=== PATIENT | born 1960 | race Caucasian/White ===

== ENCOUNTER → 2023-09-24 13:18 | Outpatient (BNVA) | payer MEDICARE, MEDICAID, SELFPAY | PROVIDERS: PCP Nurse Practitioner Family; Visit Provider Surgery | DX: Z12.11 Encounter for screening for malignant neoplasm of colon (principal) | CPT/HCPCS: 99024; 99204 ==

== ENCOUNTER 2023-10-29 07:14 | Day surgery (SDC) | payer MEDICARE, SELFPAY ==
[2023-10-29 07:32] VITALS: BP 137/79; PULSE 78; RESP 18; TEMP 36.2; O2SAT 96
[2023-10-29 07:34] VITALS: BMI 26.6
[2023-10-29] MEDS: sodium chloride 0.9% 1,000 ML 30 ML IV (07:39)
--- NOTE | 2023-10-29 07:40 | ANES.PREANE2 ---
Pre-Anesthetic Assessment Height/Weight: Height 1.8 m Weight 86.636 kg Temp Pulse Resp BP Pulse Ox O2 Del Method 97.2 F 78 18 137/79 96 Room Air 10/29/23 07:32 10/29/23 07:32 10/29/23 07:32 10/29/23 07:32 10/29/23 07:32 10/29/23 07:32 Operation Date: 10/29/23 08:30 Proposed Procedures p Colonoscopy(Not Applicable) - Juan Hathaway MD Last intake: Intake Last Liquid Date 10/28/23 Last Liquid Time 22:00 Last Solid Date 10/28/23 Social Tobacco Exam alert and oriented x 3 Airway Submandibular: within normal limits Mallampati: Class II History/ROS No significant history except as noted Metabolic Hyperlipidemia Anesthetic Plan ASA status: 2 Anesthesia: MAC Medications/Allergies Home Medications Medication Instructions Recorded Confirmed Last Taken Type alprazolam 1 mg tablet 1 mg PO TID 09/24/23 10/24/23 10/23/23 History atorvastatin 40 mg tablet 1 mg PO DAILY 09/24/23 10/24/23 10/23/23 History Allergies Allergy/AdvReac Type Severity Reaction Status Date / Time Opioids - Morphine Analogues Allergy ALGY-Rash Verified 10/29/23 07:41 pregabalin [From Lyrica] Allergy ALGY-Rash Verified 10/29/23 07:41 Current Medications Generic Name Dose Route Start Last Admin Trade Name Freq PRN Reason Stop Dose Admin Sodium Chloride 1,000 mls @ 30 mls/hr 10/29/23 07:15 10/29/23 07:39 Sodium Chloride 0.9% IV 30 mls/hr .Q24H TASHIA Administration PFSH Anesthesia Family History (Updated 09/24/23 @ 13:43 by ANDREW Shaw) Mother Chronic mental illness Father Diabetes Social History (Updated 09/24/23 @ 13:43 by ANDREW Shaw) Smoking and tobacco/nicotine status: current every day tobacco/nicotine user cigarettes Alcohol intake: never Data Anesthesia Cardiac Studies: No Data to Display
--- NOTE | 2023-10-29 07:41 | W.PM.OPSFHP ---
Same Day Surgery H&P Indication for Procedure/HPI DATE OF PROCEDURE: October 29, 2023 CHIEF COMPLAINT/INDICATIONFOR SURGICAL PROCEDURE: colon cancer screening PREOP DIAGNOSIS: colon cancer screening PLANNED PROCEDURE: Operation Date: 10/29/23 08:30 Proposed Procedures p Colonoscopy(Not Applicable) - Juan Hathaway MD Medications/Allergies* Home Medications Medication Instructions Recorded Confirmed Type alprazolam 1 mg tablet 1 mg PO TID 09/24/23 10/24/23 History atorvastatin 40 mg tablet 1 mg PO DAILY 09/24/23 10/24/23 History Allergies/Adverse Reactions Allergy/AdvReac Type Severity Reaction Status Date / Time Opioids - Morphine Analogues Allergy ALGY-Rash Verified 10/29/23 07:41 pregabalin [From Lyrica] Allergy ALGY-Rash Verified 10/29/23 07:41 Current Medications: Generic Name Dose Route Start Last Admin Trade Name Freq PRN Reason Stop Dose Admin Sodium Chloride 1,000 mls @ 30 mls/hr 10/29/23 07:15 10/29/23 07:39 Sodium Chloride 0.9% IV 30 mls/hr .Q24H TASHIA Administration Pertinent History/Comorbid Conditions* Family History (Updated 09/24/23 @ 13:43 by ANDREW Shaw) Chronic mental illness Mother Diabetes Father Social History Smoking and tobacco/nicotine status: current every day tobacco/nicotine user cigarettes Alcohol intake: never Pertinent Exam Findings alert, oriented x 3 and clear to auscultation bilaterally Recommendations Surgery/Procedure today Coding Level of Care Code Acute Code for Chg Fwd
[2023-10-29 09:10] VITALS: BP 113/77; PULSE 65; RESP 18; TEMP 36.3; O2SAT 95
--- NOTE | 2023-10-29 12:47 | ANE.PACU2 ---
Inpatient post-anesthesia follow up: Vital signs: Temperature 97.3 F Pulse Rate 65 Respiratory Rate 18 Blood Pressure 113/77 Pulse Oximetry 95 Oxygen Delivery Me thod Room Air Oxygen Flow Rate Fraction of Inspir ed Oxygen Hydration adequate: Yes Nausea and vomiting: No Pain level: 1 Mental status: Baseline
== END 2023-10-29 09:35 | disposition home or self-care (01) ==
PROVIDERS: PCP Nurse Practitioner Family; Visit Provider Surgery
PROC: 0DJD8ZZ Inspection of Lower Intestinal Tract, Via Natural or Artificial Opening Endoscopic (ICD-10-PCS; CPT 45378; principal; 2023-10-29 08:30)
DX: Z12.11 Encounter for screening for malignant neoplasm of colon (principal); K57.30 Diverticulosis of large intestine without perforation or abscess without bleeding; K51.40 Inflammatory polyps of colon without complications; K62.1 Rectal polyp; F17.210 Nicotine dependence, cigarettes, uncomplicated; E78.5 Hyperlipidemia, unspecified
CPT/HCPCS: 45380; 88305; J2704; J7030

== ENCOUNTER → 2023-11-13 11:42 | Outpatient (BNVA) | payer MEDICARE, SELFPAY | PROVIDERS: PCP Nurse Practitioner Family; Visit Provider Surgery | DX: Z98.890 Other specified postprocedural states (principal) | CPT/HCPCS: 99212 ==